=== PATIENT | male | born 1970 | race Caucasian/White ===

== ENCOUNTER 2020-09-26 11:56 | Emergency (ER) | payer MEDICARE, MEDICAID, SELFPAY ==
[2020-09-26 12:03] VITALS: BP 130/87; PULSE 83; RESP 18; TEMP 36.8; O2SAT 99; BMI 28.5
[2020-09-26 12:10] VITALS: BP 130/87; PULSE 83; RESP 18; TEMP 36.8; O2SAT 99; BMI 28.6
--- NOTE | 2020-09-26 12:26 | HMH.EDUTC ---
[facility] [place] Disposition Clinical Impression: Cervical nerve root impingement, Radicular pain of left upper extremity Disposition: Home, Self-Care Condition on Discharge: Good Instructions: DI for Cervical Radiculopathy Prescriptions: Cyclobenzaprine HCl [Cyclobenzaprine 10mg Tab*] 10 mg PO TIDP PRN 10 Days #30 tab PRN Reason: Muscle Pain Transmission Status: Pending to [facility] methylPREDNISolone [Medrol 4mg tab] 4 mg PO DIRECTED #21 tab Transmission Status: P[facility] Referrals: PCP,No [Primary Care Provider] - Time of Disposition: 12:35 Medical Decision Making - Gregg Inquiry Pt receiving controlled substance: No Vital Signs: 09/26/20 12:03 09/26/20 12:10 Temperature 98.2 F 98.2 F Temperature Source Oral Oral Pulse Rate [Right Radial] 83 83 Respiratory Rate 18 18 Blood Pressure [Right Arm] 130/87 130/87 Blood Pressure Mean [Right Arm] 101 101 Blood Pressure Source [Right Arm] Automatic Cuff Automatic Cuff Blood Pressure Position [Right Arm] Sitting Sitting 02 Sat by Pulse Oximetry 99 99 Oxygen Delivery Method Room Air Room Air [facility] [place] HPI - General Stated complaint: left arm pain and hand, no accident Time Seen by Provider: 09/26/20 12:26 Mode of Arrival: Ambulatory Source of Information: Patient Limitations: No Limitations Description of Symptoms (Recalled from Triage Doc. by RN): Pt c/o L shoulder blade area radiating down back and down L arm into hand. 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 Pt denies presence of chest pain and neck pain. HEENT Symptoms (Recalled from RN notes): No Resp Symptoms (Recalled from RN notes): No Skin Symptoms (Recalled from RN notes): No MS Symptoms (Recalled from RN notes): Yes Functional Status (Recalled from RN notes): WNL - History of Present Illness Provider Complaint: Left arm pain for several months. Started after he was hit with a log. Has pain across his right shoulder blade and down his arm. 4th and 5th digits feel like they are on fire. Has been told in the past he might need neck surgery and has herniated discs in his back as well. He has not seen anyone for this problem. OTC NSAIDs haven't helped. Onset (ago): month(s) (4) Location: left, upper extremity Relieving factors: none Exacerbating factors: none Associated symptoms: denies other symptoms Treatments prior to arrival: NSAID - Related Data Previous Rx's Medication Instructions Recorded Cyclobenzaprine HCl 10 mg PO TIDP PRN 10 Days #30 tab 09/26/20 [Cyclobenzaprine 10mg Tab*] methylPREDNISolone [Medrol 4mg 4 mg PO DIRECTED #21 tab 09/26/20 tab] Allergies Allergy/AdvReac Type Severity Reaction Status Date / Time No Known Allergies Allergy Verified 09/26/20 12:25 - Worker's Comp Is this a Worker's Comp case?: No [facility] History - Hepatitis A Screen Drug use history?: No High risk sexual behaviors?: No History of sexually transmitted infection?: No Currently employed?: No Childcare worker?: No Do you have indoor plumbing?: Yes Do you have electricity?: Yes Attestation statement:: This patient has been screened for Hepatitis A risk factors. I have reviewed the patient's past medical history: Yes Laterality Cases: Bilateral: Tonsillectomy - Social History Alcohol Intake: never Occupational Status: other ROS Obtained: Yes All systems reviewed & no additional complaints - Musculoskeletal Musculoskeletal: Reports neck pain, Reports radiating pain into limb, Reports small joint pain in the hands, Reports tingling Physical Exam - General General appearance: alert, in no apparent distress - Head Head exam: normocephalic - Eye Eye exam: Present: PERRL - Neck Neck exam: Present: normal inspection - Chest Chest inspection: Present: normal inspection - Respiratory Respiratory exam: Present: normal lung sounds bilaterally - Cardiovascular Cardi
[2020-09-26 12:38] VITALS: BP 130/87; PULSE 83; RESP 18; TEMP 36.8; O2SAT 99
== END 2020-09-26 12:40 | disposition home or self-care (01) ==
PROVIDERS: Emergency Provider Physician Assistant
DX: G54.2 Cervical root disorders, not elsewhere classified (principal)
CPT/HCPCS: G0463; 96372; 99202; J1030

== ENCOUNTER 2021-06-30 15:25 | Emergency (ER) | payer MEDICARE, MEDICAID, SELFPAY ==
--- NOTE | 2021-06-30 15:50 | HMH.EDUTC ---
[facility] – [place] Disposition Clinical Impression: Pruritic rash Contact dermatitis Qualifiers: Contact dermatitis type: unspecified Contact dermatitis trigger: unspecified trigger Qualified Code(s): L25.9 - Unspecified contact dermatitis, unspecified cause Disposition: Home, Self-Care Condition on Discharge: Good Instructions: DI for Contact Dermatitis Additional Instructions: Try to avoid contact with the offending substance. Try to look for any thing that you might have been exposed to that could have caused this. Often, it is never figured out. There is alway the possiblity that this could be a rash from a virus. It's very hard to tell exactly by looking. So, if you begin to run a fever or feel bad please follow up. Don't start the oral steroids until tomorrow. Don't put the topical steroids (triamcinolone) on your face or your groin. It is more for if you have one area that is really itching you. Don't rub it all over yourself. Don't put it on your groin, face or underarms. Follow up with your regular doctor. GO TO THE ER FOR ANY WORSENING SYMPTOMS OR CONCERNS Prescriptions: methylPREDNISolone [Medrol] 4 mg PO DIRECTED 6 Days #21 packet Transmission Status: Received by [facility] Triamcinolone Acetonide 1 applicatio TP TIDP PRN 7 Days #1 gm PRN Reason: Itching Transmission Status: Received by [facility] hydrOXYzine pamoate [Vistaril 25mg capsule] 25 mg PO Q6H PRN #30 cap PRN Reason: Itching Transmission Status: Received by [facility] Cetirizine HCl [Zyrtec] 10 mg PO DAILY 30 Days #30 cap Transmission Status: Received by [facility] Referrals: Provider,Referral, [Primary Care Provider] - Forms: Work/School Release Time of Disposition: 16:26 Medical Decision Making - Medical Records Medical records reviewed: No: I reviewed the patient's medical records. - Gregg Inquiry Pt receiving controlled substance: No Vital Signs: 06/30/21 15:57 06/30/21 16:45 Temperature 98.4 F 98.4 F Temperature Source Oral Pulse Rate 69 Pulse Rate [Left] 69 Respiratory Rate 16 16 Blood Pressure 117/48 L Blood Pressure [Right Arm] 117/48 L Blood Pressure Mean [Right Arm] 71 02 Sat by Pulse Oximetry 98 Orders (Tests/Meds): ED MEDICATIONS Discontinued Medications Generic Name Dose Route Start Last Admin Trade Name Freq PRN Reason Stop Dose Admin Diphenhydramine HCl 50 mg 06/30/21 15:49 06/30/21 16:01 Diphenhydramine 50mg/Ml Vial IM 06/30/21 15:50 50 mg ONCE ONE Administration Methylprednisolone Sodium Succinate 125 mg 06/30/21 15:49 06/30/21 16:01 Methylprednisolone Sod Succ 125mg Vial IM 06/30/21 15:50 125 mg ONCE ONE Administration [facility] [place] HPI - General Stated complaint: rash on torso, backside and genitals Time Seen by Provider: 06/30/21 15:51 - History of Present Illness Provider Complaint: He c/o having a very itchy rash basically from his neck down. It is worst on his abdomen, uppper legs and lower back. He denies any history of having similar episodes. He denies any fever/chill/body aches. He states that he feels ok other than the itching is about to drive him crazy. - Related Data Previous Rx's Medication Instructions Recorded Cyclobenzaprine HCl 10 mg PO TIDP PRN 10 Days #30 tab 09/26/20 [Cyclobenzaprine 10mg Tab*] methylPREDNISolone [Medrol 4mg 4 mg PO DIRECTED #21 tab 09/26/20 tab] Cetirizine HCl [Zyrtec] 10 mg PO DAILY 30 Days #30 cap 06/30/21 Triamcinolone Acetonide 1 applicatio TP TIDP PRN 7 Days #1 06/30/21 gm hydrOXYzine pamoate [Vistaril 25mg 25 mg PO Q6H PRN #30 cap 06/30/21 capsule] methylPREDNISolone [Medrol] 4 mg PO DIRECTED 6 Days #21 06/30/21 packet Allergies Allergy/AdvReac Type Severity Reaction Status Date / Time No Known Allergies Allergy Verified 09/26/20 12:25 [facility] History - Hepatitis A Screen Attestation statement:: This patient has been screened f
[2021-06-30 15:57] VITALS: BP 117/48; PULSE 69; RESP 16; TEMP 36.9; O2SAT 98; BMI 31.6
[2021-06-30 16:45] VITALS: BP 117/48; PULSE 69; RESP 16; TEMP 36.9
== END 2021-06-30 16:46 | disposition home or self-care (01) ==
PROVIDERS: Emergency Provider Nurse Practitioner Family
DX: L28.2 Other prurigo (principal)
CPT/HCPCS: G0463; 96372; 99202

== ENCOUNTER 2021-07-02 13:13 | Emergency (ER) | payer MEDICARE, MEDICAID, SELFPAY ==
--- NOTE | 2021-07-02 13:10 | ECG_ITS ---
APPROVED REPORT Exam: Resting ECG HR:67 bpm ECG Measurements Heart Rate 67 AXES TX 172 P 61 QRSd 78 QRS -21 QT 394 T 34 QTc 416 Conclusion Normal sinus rhythm Low voltage QRS Borderline ECG Electronically signed by : Vaibhav Bhagat MD 07/02/2021 13:50:14
[2021-07-02 13:14] VITALS: BP 148/94; PULSE 70; RESP 20; TEMP 36.4; O2SAT 99; BMI 31.6
--- NOTE | 2021-07-02 13:16 | XR_ITS ---
PROCEDURE: XR CHEST PORTABLE CLINICAL HISTORY: cough Chest pain with wheezing COMPARISON: No exams were available for comparison FINDINGS: The cardiomediastinal silhouette and pulmonary vascularity are within normal limits. The lungs are clear without infiltrates, suspicious nodules, or pleural effusions. No acute bony abnormalities. IMPRESSION: No acute findings. Dictated by: Dr. Derrell Randolph MD 07/02/2021 14:21 Dr. Derrell Randolph MD in [place] 07/02/2021 14:21
[2021-07-02 13:53] LABS: Basophils # 0.1 K/mm3 (0-0.2); Basophils % 0.9 % (0.1-2.0); Eosinophils # 0.5 K/mm3 (0.0-0.4); Eosinophils % 3.8 % (0.1-12.0); Hematocrit 43.3 % (42.0-52.0); Hemoglobin 14.3 g/dL (14.1-18.0); Lymphocytes % 24.6 % (10-50); Mean Corpuscular HGB Conc 33.1 g/dL (31.8-35.4); Mean Corpuscular Volume 93.6 fl (80-94); Mean Platelet Volume 7.9 fl (7.4-10.4); Monocytes # 0.6 K/mm3 (0.1-1.0); Monocytes % 4.6 % (1.7-9.3); Neutrophils # 8.1 K/mm3 (1.8-7.8); Neutrophils % 66.1 % (37.0-80.0); Platelet Count 243 K/mm3 (142-424); Red Blood Count 4.62 M/mm3 (4.60-6.20); Red Cell Distribution Width 13.9 % (11.5-17.5); White Blood Count 12.2 K/mm3 (4.8-10.8)
[2021-07-02 13:56] LABS: Alanine Aminotransferase 95 U/L (12-78); Albumin Level 3.9 g/dl (3.5-5.0); Albumin/Globulin Ratio 1.2 (1.1-1.8); Alkaline Phosphatase 80 U/L (38-126); Anion Gap 8.5 mEq/L (5-15); Aspartate Amino Transferase 74 U/L (17-59); Bilirubin,Total 0.3 mg/dl (0.2-1.3); Blood Urea Nitrogen 13 mg/dl (9-20); Calcium 9.4 mg/dl (8.4-10.2); Carbon Dioxide 33 mmol/L (22.0-30.0); Chloride 102 mmol/L (98-107); Creatinine Clearance Estimated 172 mL/min (50-200); Estimated Glomerular Filt Rate 103 ml/min (>60); GFR (African American) 124 ML/MIN (>60); Globulin 3.2 g/dL (1.3-3.2); Glucose 136 mg/dl (74-100); Lipase 36 U/L (23-300); Potassium 4.5 mmoL/L (3.5-5.1); Sodium 139 mmol/L (136-145); Total Protein,Serum 7.1 g/dl (6.3-8.2)
[2021-07-02 14:00] VITALS: BP 125/77; PULSE 58; RESP 14; O2SAT 98
[2021-07-02 14:18] LABS: Troponin I < 0.01 ng/ml (0.00-0.034)
[2021-07-02 14:30] VITALS: BP 116/74; PULSE 58; RESP 14; O2SAT 98
--- NOTE | 2021-07-02 14:59 | HMH.EDCP ---
ED Disposition Clinical Impression: Chest pain Qualifiers: Chest pain type: precordial pain Qualified Code(s): R07.2 - Precordial pain Disposition: Home, Self-Care Condition on Discharge: Good Instructions: DI for Atypical Chest Pain Referrals: Provider,MD Mateo [Primary Care Provider] - Moi Faria MD [Staff Physician] - - Critical Care Critical Care Time: No Attestation: On 07/02/21, the high probability of a clinically significant, sudden or life threatening deterioration of the following system(s) required my full and direct attention, intervention and personal management. The time I documented below is in addition to time spent performing reported procedures but includes the following listed in this critical care notation. Medical Decision Making - Medical Records Medical records reviewed: Yes: I reviewed the patient's medical records. - Gregg Inquiry Pt receiving controlled substance: No Vital Signs: 07/02/21 13:14 Temperature 97.5 F L Temperature Source Oral Pulse Rate [Right Radial] 70 Respiratory Rate 20 Blood Pressure [Right Arm] 148/94 H Blood Pressure Mean [Right Arm] 112 Blood Pressure Source [Right Arm] Automatic Cuff 02 Sat by Pulse Oximetry 99 Oxygen Delivery Method Room Air - Lab Data Lab Results 07/02/21 13:18: WBC 12.2 H, RBC 4.62, Hgb 14.3, Hct 43.3, MCV 93.6, MCH 31.0, MCHC 33.1, RDW 13.9, Plt Count 243, MPV 7.9, Neut % (Auto) 66.1, Lymph % (Auto) 24.6, Aurora % (Auto) 4.6, Eos % (Auto) 3.8, Baso % (Auto) 0.9, Neut # (Auto) 8.1 H, Lymph # (Auto) 3.0, [place] # (Auto) 0.6, Eos # (Auto) 0.5 H, Baso # (Auto) 0.1 07/02/21 13:18: Sodium 139, Potassium 4.5, Chloride 102, Carbon Dioxide 33 H, Anion Gap 8.5, BUN 13, Creatinine 0.80, Estimated Creat Clear 172, Estimated GFR 103, Est GFR ( Amer) 124, Glucose 136 H, Calcium 9.4, Total Bilirubin 0.3, AST 74 H, ALT 95 H, Alkaline Phosphatase 80, Troponin I < 0.01, Total Protein 7.1, Albumin 3.9, Globulin 3.2, Albumin/Globulin Ratio 1.2, Lipase 36 Result diagrams: 07/02/21 13:18 07/02/21 13:18 Orders (Tests/Meds): ED MEDICATIONS Generic Name Dose Route Start Last Admin Trade Name Freq PRN Reason Stop Dose Admin Sodium Chloride 10 ml 07/02/21 13:17 Sodium Chloride 0.9% 10ml Vial IV 08/01/21 13:16 NEEDED PRN to Dilute Lorazepam inj Discontinued Medications Generic Name Dose Route Start Last Admin Trade Name Freq PRN Reason Stop Dose Admin Lorazepam 1 mg 07/02/21 13:17 07/02/21 13:26 Lorazepam 2mg/Ml Vial IV 07/02/21 13:18 1 mg ONCE ONE Administration ORDERS Category Date Time Status Troponin I Q3H Lab 07/02/21 16:30 Ordered Troponin I Q3H Lab 07/02/21 19:30 Ordered - Radiology Data #1 Image(s): Chest Image Reviewed: Yes I reviewed the patient's radiology results, Yes I reviewed the patient's radiology image, Yes I have reviewed radiologist's interpretation Preliminary Findings: Normal/NAD, No Infiltrates Seen - ECG Data Tracing #1 I reviewed this ECG and interpreted as documented below: ECG initial impression date: 07/02/21 ECG initial impression time: 13:20 ECG normal with no acute: arrhythmias, ischemia, conduction abnormalities, chamber hypertrophy Normal Sinus Rhythm: Yes - Reevaluation(s) Time: 15:02 Reevaluation #1: On reevaluation, patient is pain-free. Is feeling much better. Negative troponin. Patient to follow-up with PCP. Given strict return precautions. Verbalized understanding. - ADAIR Score for Non-Stemi Age of Patient: 40-49 years old Heart Rate: 70-89 bpm Systolic Blood Pressure: 140-159 mmHg Serum Creatinine: <0.40 mg/dl CHF [place] Class: I-No CHF Other Risk Factors: None Non-Stemi Risk Score: 59 Risk Stratification: 1-108 = Low Risk Medical Decision Narrative: 50-year-old male presented with some nonspecific chest pain that started this morning. Patient is extremely anxious on initial examination. Symptoms are not
[2021-07-02 15:34] VITALS: BP 116/74; PULSE 58; RESP 14; TEMP 36.4; O2SAT 98
== END 2021-07-02 15:34 | disposition home or self-care (01) ==
PROVIDERS: Emergency Provider Emergency Medicine
DX: R07.2 Precordial pain (principal)
CPT/HCPCS: 71045; 80053; 83690; 84484; 85025; 93005; 96374; 99284